=== PATIENT | male | born 1965 | race African-American/Black ===

== ENCOUNTER 2020-08-06 12:58 | Outpatient (CLI) | payer OTHER ==
--- NOTE | 2020-08-06 13:10 | RAD ---
XR Chest Pa Lat STANDARD HISTORY: Encounter for disability determination COMPARISON: None FINDINGS: The heart size is normal. The lungs are well expanded without focal areas of consolidation, pneumothorax or pleural effusions. There are degenerative changes in the spine. IMPRESSION: No radiographic evidence of acute cardiopulmonary process.
== END 2020-08-06 12:59 | disposition home or self-care (01) ==
LOC: BICRAD 12:58
PROVIDERS: ATTEND Internal Medicine
DX: Z02.71 Encounter for disability determination (principal)
CPT/HCPCS: 71046

== ENCOUNTER 2021-03-09 06:44 | Emergency (ER) | payer OTHER ==
[2021-03-09] MEDS ORDERED: Fluorescein Opthalmic Strip ONE (07:01)
[2021-03-09] MEDS ORDERED: Boostrix 0.5 ML (Tdap) VIAL ONE (08:08)
== END 2021-03-09 08:22 | disposition home or self-care (01) ==
LOC: ERS 06:44
DX: S05.01XA Injury of conjunctiva and corneal abrasion without foreign body, right eye, initial encounter (principal); I10 Essential (primary) hypertension; E78.5 Hyperlipidemia, unspecified; E11.40 Type 2 diabetes mellitus with diabetic neuropathy, unspecified; W22.8XXA Striking against or struck by other objects, initial encounter
CPT/HCPCS: 70480; 90471; 90715

== ENCOUNTER 2021-05-06 10:26 | Outpatient (CLI) | payer OTHER | END 2021-05-06 10:27 | disposition home or self-care (01) | LOC: CT 10:26 | PROVIDERS: ATTEND Surgery | DX: R10.9 Unspecified abdominal pain (principal); R19.8 Other specified symptoms and signs involving the digestive system and abdomen; K42.9 Umbilical hernia without obstruction or gangrene | CPT/HCPCS: 74176 ==

== ENCOUNTER 2021-05-23 14:36 | Emergency (ER) | payer OTHER ==
[2021-05-23] MEDS ORDERED: Proparacaine 0.5% Opth 15 ML BOT ONE (16:19)
[2021-05-23] MEDS ORDERED: Fluorescein Opthalmic Strip ONE (16:19)
== END 2021-05-23 17:05 | disposition home or self-care (01) ==
LOC: ERS 14:36
DX: S05.01XA Injury of conjunctiva and corneal abrasion without foreign body, right eye, initial encounter (principal); R60.0 Localized edema
CPT/HCPCS: 99283

== ENCOUNTER 2021-06-09 14:42 | Emergency (ER) | payer OTHER ==
[~2021-06-09 14:42] MED LIST: Iopamidol-370 76% 500 ML 1 ML ONE
[2021-06-09 15:35] LABS: #Lymphocytes 1.5 thou/uL (1.20-3.40); #Monocytes 0.8 thou/uL (0.11-0.59); #Neutrophils 5.1 thou/uL (1.40-6.50); %Basophils 0.3 % (0.0-1.0); %Eosinophils 0.1 % (0.0-10.0); %Monocytes 10.2 % (0.0-10.0); %Neutrophils 69.5 % (42.0-75.0); Hemoglobin 13.8 g/dL (14.0-18.0); Mean Corpuscular HGB CONC 33.2 g/dL (32.0-36.0); Mean Corpuscular Hemoglobin 28.3 pg (27.0-31.0); Mean Corpuscular Volume 85.2 fL (78.0-98.0); Mean Platelet Volume 8.4 fL (7.4-10.4); Platelet Count 225 thou/uL (130-400); RBC Distribution Width 11.2 % (11.5-14.5); White Blood Cell (WBC) Count 7.4 thou/uL (4.8-10.8)
[2021-06-09 15:55] LABS: ALT (SGPT) 33 U/L (8-55); AST (SGOT) 22 U/L (5-34); Albumin 3.5 g/dL (3.5-5.0); Alkaline Phosphatase 135 U/L (40-110); Anion Gap 12 mmol/L (10-20); BUN (Urea Nitrogen) 15 mg/dL (8.4-25.7); Bilirubin, Total 0.5 mg/dL (0.2-1.2); Calc. Creatinine Clearance 0 mL/min (70-130); Carbon Dioxide 22 mmol/L (22-29); Chloride 108 mmol/L (98-107); Globulin 3.5 g/dL (2.4-3.5); Glucose 205 mg/dL (70-105); Lipase 162 U/L (8-78); Potassium 3.9 mmol/L (3.5-5.1); Sodium 138 mmol/L (136-145)
[2021-06-09 16:36] LABS: Bilirubin Negative (Negative); Blood, Urine Negative (Negative); Clarity Clear (Clear); Glucose, Urine (Dipstick) Greater than 1000 mg/dL (Negative); Ketone, Urine Negative (Negative); Leukocyte Negative Leu/uL (Negative); Nitrite Negative (Negative); Protein, Urine (Dipstick) 20 mg/dL (Neg-Trace); Specific Gravity, Urine 1.028 (1.002-1.036); Urobilinogen 3 mg/dL (Less than 2); pH, Urine 5.5 (5.0-9.0)
[2021-06-09] MEDS ORDERED: Mag-Al 1200 mg/1200 mg/30 ML UDCUP ONE (17:21)
[2021-06-09] MEDS ORDERED: Lidocaine Viscous Sol 2% 15 ml UD Cup ONE (17:21)
== END 2021-06-09 18:32 | disposition home or self-care (01) ==
LOC: ERS 14:42
DX: R10.11 Right upper quadrant pain (principal); R11.0 Nausea; I10 Essential (primary) hypertension; E11.40 Type 2 diabetes mellitus with diabetic neuropathy, unspecified; E78.5 Hyperlipidemia, unspecified; G47.30 Sleep apnea, unspecified; J45.909 Unspecified asthma, uncomplicated; M19.90 Unspecified osteoarthritis, unspecified site; F17.200 Nicotine dependence, unspecified, uncomplicated
CPT/HCPCS: 36415; 74177; 80053; 81003; 83690; 85025; Q9967

== ENCOUNTER 2021-07-04 13:13 | Emergency (ER) | payer OTHER ==
[2021-07-04 13:41] LABS: Bilirubin Negative (Negative); Blood, Urine Negative (Negative); Clarity Clear (Clear); Glucose, Urine (Dipstick) Greater than 1000 mg/dL (Negative); Ketone, Urine Negative (Negative); Leukocyte Negative Leu/uL (Negative); Nitrite Negative (Negative); Protein, Urine (Dipstick) Negative (Neg-Trace); Urobilinogen Normal mg/dL (Less than 2); pH, Urine 5.5 (5.0-9.0)
[2021-07-04 14:20] LABS: #Lymphocytes 1.4 thou/uL (1.20-3.40); #Monocytes 0.9 thou/uL (0.11-0.59); #Neutrophils 3.7 thou/uL (1.40-6.50); %Basophils 0.7 % (0.0-1.0); %Lymphocytes 23.3 % (21.0-51.0); %Monocytes 14.6 % (0.0-10.0); %Neutrophils 61.4 % (42.0-75.0); Mean Corpuscular HGB CONC 33.4 g/dL (32.0-36.0); Mean Corpuscular Hemoglobin 28.3 pg (27.0-31.0); Mean Corpuscular Volume 84.9 fL (78.0-98.0); Mean Platelet Volume 9.7 fL (7.4-10.4); Platelet Count 173 thou/uL (130-400); RBC Distribution Width 12.3 % (11.5-14.5); Red Blood Cell (RBC) Count 4.94 mill/uL (4.70-6.10)
[2021-07-04 14:56] LABS: ALT (SGPT) 30 U/L (8-55); AST (SGOT) 23 U/L (5-34); Albumin 3.9 g/dL (3.5-5.0); Alkaline Phosphatase 161 U/L (40-110); Anion Gap 17 mmol/L (10-20); BUN (Urea Nitrogen) 18 mg/dL (8.4-25.7); Bilirubin, Total 0.5 mg/dL (0.2-1.2); Calc. Creatinine Clearance 0 mL/min (70-130); Calcium 9.6 mg/dL (7.8-10.44); Carbon Dioxide 21 mmol/L (22-29); Chloride 103 mmol/L (98-107); Globulin 3.8 g/dL (2.4-3.5); Glucose 347 mg/dL (70-105); Lipase 91 U/L (8-78); Potassium 4.2 mmol/L (3.5-5.1); Protein, Total 7.7 g/dL (6.0-8.3); Sodium 137 mmol/L (136-145)
== END 2021-07-04 19:18 | disposition home or self-care (01) ==
LOC: ERS 13:13
DX: R10.11 Right upper quadrant pain (principal); I10 Essential (primary) hypertension; E78.5 Hyperlipidemia, unspecified; E11.40 Type 2 diabetes mellitus with diabetic neuropathy, unspecified; G47.30 Sleep apnea, unspecified; M19.90 Unspecified osteoarthritis, unspecified site; J45.909 Unspecified asthma, uncomplicated; F17.220 Nicotine dependence, chewing tobacco, uncomplicated; E66.01 Morbid (severe) obesity due to excess calories
CPT/HCPCS: 36415; 80053; 81003; 83690; 85025; 96372; 99284; J0500

== ENCOUNTER 2022-01-16 16:05 | Emergency (ER) | payer OTHER ==
[2022-01-16 16:42] LABS: #Lymphocytes 1.7 thou/uL (1.20-3.40); #Monocytes 0.9 thou/uL (0.11-0.59); #Neutrophils 4.9 thou/uL (1.40-6.50); %Basophils 0.3 % (0.0-1.0); %Eosinophils 0.1 % (0.0-10.0); %Lymphocytes 22.6 % (21.0-51.0); %Monocytes 12.2 % (0.0-10.0); %Neutrophils 64.9 % (42.0-75.0); Hemoglobin 13.4 g/dL (14.0-18.0); Mean Corpuscular HGB CONC 32.5 g/dL (32.0-36.0); Mean Corpuscular Hemoglobin 28.5 pg (27.0-31.0); Mean Corpuscular Volume 87.7 fL (78.0-98.0); Mean Platelet Volume 9.3 fL (7.4-10.4); Platelet Count 184 thou/uL (130-400); RBC Distribution Width 12.6 % (11.5-14.5); Red Blood Cell (RBC) Count 4.72 mill/uL (4.70-6.10); White Blood Cell (WBC) Count 7.6 thou/uL (4.8-10.8)
[2022-01-16 17:18] LABS: Amphetamine Not Detected (NotDetected); Barbiturates Screen Not Detected (NotDetected); Benzodiazepine Screen Not Detected (NotDetected); Cocaine Metabolite Screen Not Detected (NotDetected); Methadone Not Detected (NotDetected); Methamphetamine Not Detected (NotDetected); Opiate Screen Not Detected (NotDetected); Oxycodone Screen Not Detected (NotDetected); Phencyclidine (PCP) Not Detected (NotDetected); THC/Cannabinoid Screen Not Detected (NotDetected); Tricyclic Screen Not Detected (NotDetected)
[2022-01-16 17:25] LABS: ALT (SGPT) 29 U/L (8-55); AST (SGOT) 25 U/L (5-34); Acetaminophen Less than 10.0 mcg/mL (10.0-30.0); Albumin 4.1 g/dL (3.5-5.0); Alcohol Less than 10 mg/dL (Less than 10); Alkaline Phosphatase 125 U/L (40-110); Anion Gap 15 mmol/L (10-20); BUN (Urea Nitrogen) 28 mg/dL (8.4-25.7); Bilirubin, Total 1.3 mg/dL (0.2-1.2); Calc. Creatinine Clearance 0 mL/min (70-130); Calcium 9.4 mg/dL (7.8-10.44); Carbon Dioxide 23 mmol/L (22-29); Chloride 104 mmol/L (98-107); Globulin 3.1 g/dL (2.4-3.5); Glucose 135 mg/dL (70-105); Lipase 52 U/L (8-78); Potassium 3.9 mmol/L (3.5-5.1); Protein, Total 7.2 g/dL (6.0-8.3); Salicylate Less than 8.0 mg/dL (15.0-30.0); Sodium 138 mmol/L (136-145)
== END 2022-01-16 19:22 | disposition home or self-care (01) ==
LOC: ERS 16:05
DX: R10.12 Left upper quadrant pain (principal); I10 Essential (primary) hypertension; E78.5 Hyperlipidemia, unspecified; E11.40 Type 2 diabetes mellitus with diabetic neuropathy, unspecified; G47.30 Sleep apnea, unspecified; M19.90 Unspecified osteoarthritis, unspecified site; F17.220 Nicotine dependence, chewing tobacco, uncomplicated
CPT/HCPCS: 36415; 71045; 74177; 80053; 80306; 80307; 83690; 84443; 84484; 85025; 93005; 94760

== ENCOUNTER 2022-02-27 15:31 | Emergency (ER) | payer OTHER ==
[2022-02-27 17:12] LABS: #Lymphocytes 1.7 thou/uL (1.20-3.40); #Monocytes 0.8 thou/uL (0.11-0.59); #Neutrophils 3.3 thou/uL (1.40-6.50); %Basophils 0.7 % (0.0-1.0); %Lymphocytes 28.6 % (21.0-51.0); %Monocytes 13.5 % (0.0-10.0); %Neutrophils 57.2 % (42.0-75.0); Hemoglobin 13.3 g/dL (14.0-18.0); Mean Corpuscular HGB CONC 32.8 g/dL (32.0-36.0); Mean Corpuscular Hemoglobin 28.9 pg (27.0-31.0); Mean Corpuscular Volume 88.1 fL (78.0-98.0); Mean Platelet Volume 9.1 fL (7.4-10.4); Platelet Count 176 thou/uL (130-400); RBC Distribution Width 12.6 % (11.5-14.5); White Blood Cell (WBC) Count 5.8 thou/uL (4.8-10.8)
[2022-02-27 17:33] LABS: Anion Gap 14 mmol/L (10-20); BUN (Urea Nitrogen) 11 mg/dL (8.4-25.7); Calc. Creatinine Clearance 0 mL/min (70-130); Carbon Dioxide 21 mmol/L (22-29); Chloride 105 mmol/L (98-107); Potassium 3.9 mmol/L (3.5-5.1); Sodium 136 mmol/L (136-145)
[2022-02-27 17:34] LABS: ALT (SGPT) 22 U/L (8-55); AST (SGOT) 19 U/L (5-34); Albumin 3.6 g/dL (3.5-5.0); Alkaline Phosphatase 159 U/L (40-110); Bilirubin, Total 0.6 mg/dL (0.2-1.2); Calcium 8.9 mg/dL (7.8-10.44); Globulin 3.3 g/dL (2.4-3.5); Glucose 242 mg/dL (70-105); Protein, Total 6.9 g/dL (6.0-8.3)
== END 2022-02-27 18:45 | disposition home or self-care (01) ==
LOC: ERS 15:31
DX: E11.65 Type 2 diabetes mellitus with hyperglycemia (principal); E11.40 Type 2 diabetes mellitus with diabetic neuropathy, unspecified; E78.5 Hyperlipidemia, unspecified; G47.30 Sleep apnea, unspecified; M19.90 Unspecified osteoarthritis, unspecified site; J45.909 Unspecified asthma, uncomplicated
CPT/HCPCS: 36416; 80053; 85025; 96360

== ENCOUNTER 2022-11-14 07:41 | Inpatient (IN) | payer BC, OTHER ==
[2022-11-14 08:12] LABS: #Lymphocytes 1.3 thou/uL (1.20-3.40); #Monocytes 0.8 thou/uL (0.11-0.59); #Neutrophils 5.8 thou/uL (1.40-6.50); %Basophils 0.2 % (0.0-1.0); %Eosinophils 0.5 % (0.0-10.0); %Lymphocytes 16.3 % (21.0-51.0); %Monocytes 10.1 % (0.0-10.0); Hemoglobin 14.4 g/dL (14.0-18.0); Mean Corpuscular HGB CONC 32.5 g/dL (32.0-36.0); Mean Corpuscular Hemoglobin 27.8 pg (27.0-31.0); Mean Corpuscular Volume 85.6 fl (78.0-98.0); Mean Platelet Volume 10.2 fL (7.4-10.4); Platelet Count 146 10x3/uL (130-400); RBC Distribution Width 12.5 % (11.5-14.5); Red Blood Cell (RBC) Count 5.18 mill/uL (4.70-6.10)
[2022-11-14 08:30] LABS: Prothrombin Time 13.6 sec (12.0-14.7)
[2022-11-14 08:33] LABS: ALT (SGPT) 35 U/L (8-55); AST (SGOT) 26 U/L (5-34); Albumin 4.1 g/dL (3.5-5.0); Alkaline Phosphatase 253 U/L (40-110); Anion Gap 15 mmol/L (10-20); BUN (Urea Nitrogen) 21 mg/dL (8.4-25.7); Bilirubin, Total 0.6 mg/dL (0.2-1.2); Calc. Creatinine Clearance 0 mL/min (70-130); Calcium 9.7 mg/dL (7.8-10.44); Carbon Dioxide 24 mmol/L (22-29); Chloride 101 mmol/L (98-107); Estimated GFR 50; Potassium 4.5 mmol/L (3.5-5.1); Protein, Total 8.1 g/dL (6.0-8.3); Sodium 135 mmol/L (136-145)
[2022-11-14 08:46] LABS: Glucose 405 mg/dL (70-105)
[2022-11-14] MEDS ORDERED: Aspirin Chewable 81 MG TAB ONE (08:47)
[2022-11-14] MEDS ORDERED: hydrALAZINE 20 MG/ML VIAL ONE (08:47)
[2022-11-14] MEDS ORDERED: Insulin Regular 300 UNITS/3 ML VIAL ONE (08:47)
[2022-11-14 09:08] LABS: Bilirubin Negative (Negative); Blood, Urine Negative (Negative); Clarity Clear (Clear); Glucose, Urine (Dipstick) Greater than 1000 mg/dL (Negative); Ketone, Urine Negative (Negative); Leukocyte Negative Leu/uL (Negative); Nitrite Negative (Negative); Protein, Urine (Dipstick) Negative (Neg-Trace); Specific Gravity, Urine 1.024 (1.002-1.036); Urobilinogen Normal mg/dL (Less than 2); pH, Urine 6.5 (5.0-9.0)
[2022-11-14] MEDS ORDERED: Acetaminophen 325 MG TAB PO PRN (09:32)
[2022-11-14] MEDS ORDERED: Ondansetron PF 4 MG/2 ML Vial IVP PRN (09:32)
[2022-11-14] MEDS ORDERED: HYDROcodone/Acetaminophen 5/325 mg Tablet PO PRN (09:32)
[2022-11-14] MEDS ORDERED: Dextrose 5% in Water 1,000 ML IV PRN (09:53)
[2022-11-14] MEDS ORDERED: Dextrose 50% Abboject 50 ML SYRINGE SLOW IVP PRN (09:53)
[2022-11-14] MEDS ORDERED: Insulin Glargine 30 UNITS/0.3 ML VIAL SC SCH (10:00)
[2022-11-14 10:29] LABS: Hemoglobin A1c 9.3 % (4.0-6.0)
[2022-11-14 13:58] LABS: Glucose 227 mg/dL (70-105)
[2022-11-14] MEDS ORDERED: Iopamidol-370 76% 500 ML 1 ML ONE (14:16)
[2022-11-14] MEDS ORDERED: hydrALAZINE 20 MG/ML VIAL SLOW IVP PRN (17:48)
[2022-11-14] MEDS: HumaLOG 300 UNITS/3 ML VIAL SC PRN ×2 (18:10→20:34)
[2022-11-14] MEDS ORDERED: HumaLOG 300 UNITS/3 ML VIAL ONE (18:11)
[2022-11-14 19:02] VITALS: BMI 34.8
[2022-11-14] MEDS: Atorvastatin Calcium 40 MG TAB PO SCH (20:29)
[2022-11-14] MEDS: Famotidine/PF 20 mg/2ml Vial SLOW IVP SCH (20:29)
[2022-11-14 22:34] LABS: Glucose 193 mg/dL (70-105)
[2022-11-15] MEDS: HumaLOG 300 UNITS/3 ML VIAL SC PRN ×3 (05:39→18:28)
[2022-11-15 05:40] LABS: #Lymphocytes 1.3 thou/uL (1.20-3.40); #Monocytes 0.8 thou/uL (0.11-0.59); #Neutrophils 5.9 thou/uL (1.40-6.50); %Basophils 0.1 % (0.0-1.0); %Eosinophils 0.1 % (0.0-10.0); %Lymphocytes 16.6 % (21.0-51.0); %Monocytes 9.9 % (0.0-10.0); %Neutrophils 73.3 % (42.0-75.0); Hemoglobin 14.7 g/dL (14.0-18.0); Mean Corpuscular HGB CONC 33.3 g/dL (32.0-36.0); Mean Corpuscular Hemoglobin 28.7 pg (27.0-31.0); Mean Corpuscular Volume 86.2 fl (78.0-98.0); Mean Platelet Volume 9.9 fL (7.4-10.4); Platelet Count 146 10x3/uL (130-400); RBC Distribution Width 12.6 % (11.5-14.5); Red Blood Cell (RBC) Count 5.13 mill/uL (4.70-6.10)
[2022-11-15 06:00] LABS: Anion Gap 14 mmol/L (10-20); BUN (Urea Nitrogen) 22 mg/dL (8.4-25.7); Calc. Creatinine Clearance 90 mL/min (70-130); Calcium 9.4 mg/dL (7.8-10.44); Carbon Dioxide 21 mmol/L (22-29); Cardiac Risk 2.8 (Less than 4.5); Chloride 103 mmol/L (98-107); Cholesterol 129 mg/dl (< 200 Desired); Estimated GFR 61; Glucose 247 mg/dL (70-105); HDL Cholesterol 46 mg/dL (>60 Neg Risk); LDL Cholesterol, Calculated 66 mg/dL; Potassium 4.5 mmol/L (3.5-5.1); Sodium 133 mmol/L (136-145); Triglycerides 85 mg/dL (Less than 150)
[2022-11-15] MEDS: Famotidine/PF 20 mg/2ml Vial SLOW IVP SCH (08:26)
[2022-11-15] MEDS: Aspirin 81 mg Enteric Coated Tablet PO SCH (08:26)
[2022-11-15] MEDS: Insulin Glargine 30 UNITS/0.3 ML VIAL SC SCH (08:27)
[2022-11-15] MEDS ORDERED: Insulin Glargine 30 UNITS/0.3 ML VIAL SC SCH (21:00)
[2022-11-15] MEDS: Bupropion 100 MG SR TAB PO SCH (22:06)
[2022-11-15] MEDS: Atorvastatin Calcium 40 MG TAB PO SCH (22:06)
[2022-11-15] MEDS: Gabapentin 300 MG CAP PO SCH (22:06)
[2022-11-15] MEDS: Lithium Carbonate 150 MG CAP PO SCH (22:08)
[2022-11-15] MEDS: Metoprolol Tartrate 25 MG TAB PO SCH (22:08)
[2022-11-16 05:34] LABS: Anion Gap 13 mmol/L (10-20); BUN (Urea Nitrogen) 23 mg/dL (8.4-25.7); Calc. Creatinine Clearance 81 mL/min (70-130); Calcium 9.2 mg/dL (7.8-10.44); Carbon Dioxide 21 mmol/L (22-29); Chloride 104 mmol/L (98-107); Estimated GFR 54; Glucose 225 mg/dL (70-105); Sodium 134 mmol/L (136-145)
[2022-11-16] MEDS: HumaLOG 300 UNITS/3 ML VIAL SC PRN (06:10)
[2022-11-16] MEDS: Gabapentin 300 MG CAP PO SCH ×3 (09:36→21:49)
[2022-11-16] MEDS: Bupropion 100 MG SR TAB PO SCH ×2 (09:36→21:50)
[2022-11-16] MEDS: Metoprolol Tartrate 25 MG TAB PO SCH ×2 (09:39→21:51)
[2022-11-16] MEDS: Aspirin 81 mg Enteric Coated Tablet PO SCH (09:39)
[2022-11-16] MEDS: Lithium Carbonate 150 MG CAP PO SCH ×2 (09:40→21:51)
[2022-11-16] MEDS: Insulin Glargine 30 UNITS/0.3 ML VIAL SC SCH (09:41)
[2022-11-16] MEDS ORDERED: Insulin Glargine 30 UNITS/0.3 ML VIAL SC SCH (21:00)
[2022-11-16] MEDS: Atorvastatin Calcium 40 MG TAB PO SCH (21:50)
[2022-11-17] MEDS: HumaLOG 300 UNITS/3 ML VIAL SC PRN ×2 (00:20→06:54)
[2022-11-17 06:20] LABS: Anion Gap 13 mmol/L (10-20); BUN (Urea Nitrogen) 25 mg/dL (8.4-25.7); Calc. Creatinine Clearance 80 mL/min (70-130); Calcium 9.3 mg/dL (7.8-10.44); Carbon Dioxide 22 mmol/L (22-29); Chloride 105 mmol/L (98-107); Estimated GFR 53; Glucose 183 mg/dL (70-105); Potassium 4.3 mmol/L (3.5-5.1); Sodium 136 mmol/L (136-145)
[2022-11-17 06:30] LABS: Lymphocytes 19 % (21-51); MDiff Complete? YES; Mean Corpuscular HGB CONC 32.8 g/dL (32.0-36.0); Mean Corpuscular Hemoglobin 28.3 pg (27.0-31.0); Mean Corpuscular Volume 86.5 fl (78.0-98.0); Monocytes 5 % (0-10); Neutrophil 73 % (42-75); Platelet Count 134 10x3/uL (130-400); Platelet Morphology Comment Appears Adequate; RBC Distribution Width 12.7 % (11.5-14.5); RBC Morphology Normal; Reactive Lymphocytes 3 % (0-10); Red Blood Cell (RBC) Count 4.92 mill/uL (4.70-6.10); White Blood Cell (WBC) Count 7.2 10x3/uL (4.8-10.8)
[2022-11-17] MEDS ORDERED: FLU VACC QS2022-23(6MOS UP)/PF 60 MCG/0.5 ML SYRINGE IM ONE (09:00)
[2022-11-17] MEDS: Aspirin 81 mg Enteric Coated Tablet PO SCH (09:52)
[2022-11-17] MEDS: Bupropion 100 MG SR TAB PO SCH (09:53)
[2022-11-17] MEDS: Gabapentin 300 MG CAP PO SCH ×2 (09:54→15:43)
[2022-11-17] MEDS: Insulin Glargine 30 UNITS/0.3 ML VIAL SC SCH (09:55)
[2022-11-17] MEDS: Lithium Carbonate 150 MG CAP PO SCH (09:56)
[2022-11-17] MEDS: Metoprolol Tartrate 25 MG TAB PO SCH (09:57)
[2022-11-17 16:04] VITALS: BP 151/80; TEMP 97.5
[2022-11-17] MEDS ORDERED: Amlodipine 5 MG TAB PO SCH (18:00)
== END 2022-11-17 17:11 | disposition home or self-care (01) | DRG 65 ==
LOC: ERS 07:41 → ERHOLD 09:18 → NEURO 18:43
PROVIDERS: ADMIT Internal Medicine; ATTEND Internal Medicine
DX: I63.9 Cerebral infarction, unspecified (principal); G81.94 Hemiplegia, unspecified affecting left nondominant side; I16.1 Hypertensive emergency; R29.703 NIHSS score 3; Z20.822 Contact with and (suspected) exposure to COVID-19; E11.65 Type 2 diabetes mellitus with hyperglycemia; F17.290 Nicotine dependence, other tobacco product, uncomplicated; R20.0 Anesthesia of skin; R47.81 Slurred speech; N18.30 Chronic kidney disease, stage 3 unspecified; E11.22 Type 2 diabetes mellitus with diabetic chronic kidney disease; I12.9 Hypertensive chronic kidney disease with stage 1 through stage 4 chronic kidney disease, or unspecified chronic kidney disease; M25.552 Pain in left hip; M54.9 Dorsalgia, unspecified; Z90.49 Acquired absence of other specified parts of digestive tract; Z28.21 Immunization not carried out because of patient refusal; Z82.49 Family history of ischemic heart disease and other diseases of the circulatory system; Z83.3 Family history of diabetes mellitus; Z91.14 Patient's other noncompliance with medication regimen; Z79.899 Other long term (current) drug therapy; Z79.1 Long term (current) use of non-steroidal anti-inflammatories (NSAID)
CPT/HCPCS: 36415; 36416; 70450; 70496; 70498; 70551; 71045; 72131; 80048; 80053; 80061; 81003; 83036; 84484; 85025; 85610; 85730; 93005; 93306; 94760; 96361; 96374; 96375; J0360; J1650; J1815; Q9967; S0028; U0003; U0005

== ENCOUNTER 2022-12-22 23:51 | Emergency (ER) | payer BC, OTHER ==
[2022-12-23] MEDS ORDERED: Aspirin Chewable 81 MG TAB ONE (01:05)
== END 2022-12-23 01:51 | disposition home or self-care (01) ==
LOC: ERS 23:51
DX: R20.2 Paresthesia of skin (principal); E11.65 Type 2 diabetes mellitus with hyperglycemia; I10 Essential (primary) hypertension; E78.5 Hyperlipidemia, unspecified; E11.40 Type 2 diabetes mellitus with diabetic neuropathy, unspecified; F17.220 Nicotine dependence, chewing tobacco, uncomplicated; Z79.4 Long term (current) use of insulin
CPT/HCPCS: 36416; 93005

== ENCOUNTER 2022-12-28 21:31 | Emergency (ER) | payer OTHER ==
[2022-12-28 22:50] LABS: #Lymphocytes 1.9 thou/uL (1.20-3.40); #Monocytes 0.7 thou/uL (0.11-0.59); #Neutrophils 4.2 thou/uL (1.40-6.50); %Basophils 0.5 % (0.0-1.0); %Eosinophils 0.1 % (0.0-10.0); %Lymphocytes 27.5 % (21.0-51.0); %Monocytes 10.2 % (0.0-10.0); %Neutrophils 61.7 % (42.0-75.0); Hemoglobin 12.8 g/dL (14.0-18.0); Mean Corpuscular HGB CONC 32.7 g/dL (32.0-36.0); Mean Corpuscular Hemoglobin 28.4 pg (27.0-31.0); Mean Corpuscular Volume 86.8 fl (78.0-98.0); Mean Platelet Volume 9.1 fL (7.4-10.4); Platelet Count 165 10x3/uL (130-400); RBC Distribution Width 12.6 % (11.5-14.5); Red Blood Cell (RBC) Count 4.49 mill/uL (4.70-6.10); White Blood Cell (WBC) Count 6.8 10x3/uL (4.8-10.8)
[2022-12-28] MEDS ORDERED: traZODone HCl 50 MG TAB ONE (22:51)
[2022-12-28] MEDS ORDERED: Nicotine 14 MG PATCH ONE (22:51)
[2022-12-28] MEDS ORDERED: hydrOXYzine Pamoate 25 mg Capsule ONE (22:52)
[2022-12-28] MEDS ORDERED: Ibuprofen 200 MG TAB ONE (22:53)
[2022-12-28 22:55] LABS: Bilirubin Negative (Negative); Blood, Urine Negative (Negative); Clarity Clear (Clear); Glucose, Urine (Dipstick) 500 mg/dL (Negative); Ketone, Urine Negative (Negative); Leukocyte Negative Leu/uL (Negative); Nitrite Negative (Negative); Protein, Urine (Dipstick) Negative (Neg-Trace); Specific Gravity, Urine 1.003 (1.002-1.036); Urobilinogen Normal mg/dL (Less than 2)
[2022-12-28 23:04] LABS: Amphetamine Not Detected (NotDetected); Barbiturates Screen Not Detected (NotDetected); Benzodiazepine Screen Not Detected (NotDetected); Cocaine Metabolite Screen Not Detected (NotDetected); Methadone Not Detected (NotDetected); Methamphetamine Not Detected (NotDetected); Opiate Screen Not Detected (NotDetected); Oxycodone Screen Not Detected (NotDetected); Phencyclidine (PCP) Not Detected (NotDetected); THC/Cannabinoid Screen Not Detected (NotDetected); Tricyclic Screen Not Detected (NotDetected)
[2022-12-28 23:11] LABS: Acetaminophen Less than 10.0 mcg/mL (10.0-30.0); Alcohol 138 mg/dL (Less than 10); Salicylate Less than 8.0 mg/dL (15.0-30.0)
[2022-12-28 23:13] LABS: ALT (SGPT) 26 U/L (8-55); AST (SGOT) 24 U/L (5-34); Albumin 3.7 g/dL (3.5-5.0); Alkaline Phosphatase 150 U/L (40-110); Anion Gap 14 mmol/L (10-20); BUN (Urea Nitrogen) 21 mg/dL (8.4-25.7); Bilirubin, Total 0.4 mg/dL (0.2-1.2); Calc. Creatinine Clearance 0 mL/min (70-130); Calcium 9.2 mg/dL (7.8-10.44); Carbon Dioxide 21 mmol/L (22-29); Chloride 109 mmol/L (98-107); Estimated GFR 52; Globulin 3.6 g/dL (2.4-3.5); Glucose 214 mg/dL (70-105); Potassium 3.5 mmol/L (3.5-5.1); Protein, Total 7.3 g/dL (6.0-8.3); Sodium 140 mmol/L (136-145)
[2022-12-28] MEDS ORDERED: Ziprasidone 20 MG VIAL ONE (23:34)
[2022-12-28] MEDS ORDERED: Sterile Water 10 ML ONE (23:35)
== END 2022-12-29 13:16 | disposition home or self-care (01) ==
LOC: ERS 21:31
DX: F10.129 Alcohol abuse with intoxication, unspecified (principal); I10 Essential (primary) hypertension; E11.40 Type 2 diabetes mellitus with diabetic neuropathy, unspecified; E78.5 Hyperlipidemia, unspecified; F17.220 Nicotine dependence, chewing tobacco, uncomplicated; Y90.6 Blood alcohol level of 120-199 mg/100 ml
CPT/HCPCS: 36415; 70450; 72125; 80053; 80306; 80307; 81003; 84443; 85025; 93005; 96372; J3486; Q0177

== ENCOUNTER 2024-06-27 14:04 | Inpatient (IN) | payer OTHER ==
[2024-06-27] MEDS ORDERED: Heparin 25,000 units/D5W 500 ML ONE (14:23)
[2024-06-27] MEDS ORDERED: Heparin 10,000 UNITS/ 10 ML VIAL ONE (14:26)
[2024-06-27] MEDS ORDERED: Heparin 25,000 UNITS/D5W 500 ml bag ONE (14:26)
[2024-06-27 14:38] LABS: #Basophils 0.03 10x3/uL (0.0-0.2); #Eosinophils Less than 0.03 10x3/uL (0.0-0.7); %Basophils 0.5 % (0.0-1.0); %Lymphocytes 16.3 % (21.0-51.0); %Monocytes 13.2 % (0.0-10.0); %Neutrophils 69.8 % (42.0-75.0); Hematocrit 40.4 % (42.0-52.0); Hemoglobin 13.3 g/dL (14.0-18.0); Mean Corpuscular HGB CONC 32.9 g/dL (32.0-36.0); Mean Corpuscular Hemoglobin 27.7 pg (27.0-31.0); Mean Platelet Volume 11.2 fL (7.4-10.4); Platelet Count 186 10x3/uL (130-400); RBC Distribution Width 13.2 % (11.5-14.5); Red Blood Cell (RBC) Count 4.81 mill/uL (4.70-6.10)
[2024-06-27] MEDS ORDERED: Dextrose 50% Abboject 50 ML SYRINGE SLOW IVP PRN (14:48)
[2024-06-27] MEDS ORDERED: Dextrose 5% in Water 1,000 ML IV PRN (14:48)
[2024-06-27] MEDS ORDERED: Insulin Lispro 100 UNIT/ML 10 ML VIAL SC PRN ×2 (14:48)
[2024-06-27] MEDS ORDERED: Glucagon 1 MG/ML KIT IM PRN (14:48)
[2024-06-27 14:55] LABS: INR-International Normal Ratio 1.1; PTT 26.6 sec (22.9-36.1); Troponin I 0.229 ng/mL (< 0.028)
[2024-06-27] MEDS ORDERED: Heparin 25,000 units/D5W 500 ML IVPB SCH (15:00)
[2024-06-27] MEDS ORDERED: Morphine 2 MG/ML VIAL SLOW IVP PRN (15:00)
[2024-06-27] MEDS ORDERED: Ondansetron ODT 4 MG TAB PO PRN (15:29)
[2024-06-27] MEDS ORDERED: Calcium Carbonate 500 MG ChewTAB PO PRN (15:29)
[2024-06-27] MEDS ORDERED: Acetaminophen 325 MG TAB PO PRN (15:29)
[2024-06-27] MEDS ORDERED: Senokot S 8.6-50 MG TAB PO PRN (15:29)
[2024-06-27] MEDS ORDERED: Ondansetron PF 4 MG/2 ML Vial IVP PRN (15:29)
[2024-06-27 15:42] LABS: Hemoglobin 12.9 g/dL (14.0-18.0); Platelet Count 191 10x3/uL (130-400)
[2024-06-27 15:55] LABS: ALT (SGPT) 22 U/L (8-55); AST (SGOT) 23 U/L (5-34); Albumin 3.3 g/dL (3.4-4.8); Alkaline Phosphatase 93 U/L (40-110); Anion Gap 12 mmol/L (10-20); BUN (Urea Nitrogen) 25 mg/dL (8.4-25.7); Bilirubin, Total 0.8 mg/dL (0.2-1.2); Calc. Creatinine Clearance 0 mL/min (70-130); Calcium 8.9 mg/dL (7.8-10.44); Carbon Dioxide 24 mmol/L (23-31); Chloride 107 mmol/L (98-107); Estimated GFR 39; Globulin 3.3 g/dL (2.4-3.5); Glucose 152 mg/dL (80-115); Lipase 40 U/L (8-78); Potassium 3.8 mmol/L (3.5-5.1); Protein, Total 6.6 g/dL (5.8-8.1); Sodium 139 mmol/L (136-145)
[2024-06-27] MEDS ORDERED: Gabapentin 100 MG CAP ONE (16:09)
[2024-06-27] MEDS ORDERED: Carvedilol 6.25 MG TAB ONE (16:09)
[2024-06-27] MEDS: Gabapentin 100 MG CAP PO SCH (16:22)
[2024-06-27] MEDS: Carvedilol 6.25 MG TAB PO SCH (16:23)
[2024-06-27 17:27] LABS: Troponin I 0.456 ng/mL (< 0.028)
[2024-06-27] MEDS: Sodium Chloride 0.9% 1,000 ML IV SCH (18:14)
[2024-06-27 18:17] VITALS: BMI 38.2
[2024-06-27] MEDS: Atorvastatin Calcium 40 MG TAB PO SCH (20:55)
[2024-06-27] MEDS: Heparin 10,000 UNITS/ 10 ML VIAL SLOW IVP SCH (20:57)
[2024-06-27] MEDS ORDERED: Lithium Carbonate 150 MG CAP PO SCH (21:00)
[2024-06-27] MEDS: Insulin Glargine 30 UNITS/0.3 ML VIAL SC SCH (22:30)
[2024-06-28 04:36] LABS: #Basophils 0.03 10x3/uL (0.0-0.2); #Eosinophils Less than 0.03 10x3/uL (0.0-0.7); %Basophils 0.5 % (0.0-1.0); %Lymphocytes 28.5 % (21.0-51.0); %Monocytes 15.9 % (0.0-10.0); %Neutrophils 54.8 % (42.0-75.0); Hematocrit 37.5 % (42.0-52.0); Hemoglobin 12.3 g/dL (14.0-18.0); Mean Corpuscular HGB CONC 32.8 g/dL (32.0-36.0); Mean Corpuscular Hemoglobin 27.8 pg (27.0-31.0); Mean Corpuscular Volume 84.8 fL (78.0-98.0); Mean Platelet Volume 11.4 fL (7.4-10.4); Platelet Count 173 10x3/uL (130-400); RBC Distribution Width 13.1 % (11.5-14.5); Red Blood Cell (RBC) Count 4.42 mill/uL (4.70-6.10)
[2024-06-28 05:06] LABS: Hemoglobin A1c 9.7 % (4.0-6.0)
[2024-06-28 05:10] LABS: ALT (SGPT) 19 U/L (8-55); AST (SGOT) 19 U/L (5-34); Albumin 2.9 g/dL (3.4-4.8); Alkaline Phosphatase 109 U/L (40-110); Anion Gap 10 mmol/L (10-20); BUN (Urea Nitrogen) 21 mg/dL (8.4-25.7); Bilirubin, Total 0.6 mg/dL (0.2-1.2); Calc. Creatinine Clearance 90 mL/min (70-130); Calcium 8.7 mg/dL (7.8-10.44); Carbon Dioxide 23 mmol/L (23-31); Cardiac Risk 2.6 (Less than 4.5); Chloride 109 mmol/L (98-107); Cholesterol 84 mg/dl (< 200 Desired); Estimated GFR 58; Glucose 239 mg/dL (80-115); HDL Cholesterol 32 mg/dL (>60 Neg Risk); LDL Cholesterol, Calculated 32 mg/dL; Potassium 3.8 mmol/L (3.5-5.1); Protein, Total 5.9 g/dL (5.8-8.1); Sodium 138 mmol/L (136-145); Triglycerides 100 mg/dL (Less than 150)
[2024-06-28] MEDS: Lisinopril 5 MG TAB PO SCH (09:30)
[2024-06-28] MEDS: Amlodipine 5 MG TAB PO SCH (09:30)
[2024-06-28] MEDS: Clopidogrel Bisulfate 75 MG TAB PO SCH (09:31)
[2024-06-28] MEDS: Ezetimibe 10 MG TAB PO SCH (09:31)
[2024-06-28] MEDS: Aspirin 81 mg Enteric Coated Tablet PO SCH (09:31)
[2024-06-28] MEDS: Insulin Glargine 30 UNITS/0.3 ML VIAL SC SCH (09:31)
[2024-06-28 09:43] LABS: Troponin I 0.797 ng/mL (< 0.028)
[2024-06-28] MEDS ORDERED: Communication Order-Pharmacy FS SCH (10:00)
[2024-06-28] MEDS: Enoxaparin 120 MG/0.8 ML SYRINGE SC SCH (12:09)
[2024-06-28 13:29] LABS: Critical Call Chem Troponin I RESULT DECREASING; Troponin I 0.775 ng/mL (< 0.028)
[2024-06-29 04:43] LABS: #Basophils 0.03 10x3/uL (0.0-0.2); #Eosinophils Less than 0.03 10x3/uL (0.0-0.7); %Basophils 0.6 % (0.0-1.0); %Monocytes 14.3 % (0.0-10.0); %Neutrophils 63.9 % (42.0-75.0); Hematocrit 39.4 % (42.0-52.0); Hemoglobin 12.7 g/dL (14.0-18.0); Mean Corpuscular HGB CONC 32.2 g/dL (32.0-36.0); Mean Corpuscular Hemoglobin 27.4 pg (27.0-31.0); Mean Corpuscular Volume 84.9 fL (78.0-98.0); Mean Platelet Volume 11.3 fL (7.4-10.4); Platelet Count 171 10x3/uL (130-400); RBC Distribution Width 13.1 % (11.5-14.5); Red Blood Cell (RBC) Count 4.64 mill/uL (4.70-6.10)
[2024-06-29 05:01] LABS: Anion Gap 11 mmol/L (10-20); BUN (Urea Nitrogen) 15 mg/dL (8.4-25.7); Calc. Creatinine Clearance 88 mL/min (70-130); Calcium 8.3 mg/dL (7.8-10.44); Carbon Dioxide 22 mmol/L (23-31); Chloride 109 mmol/L (98-107); Estimated GFR 56; Glucose 193 mg/dL (80-115); Magnesium 1.8 mg/dL (1.6-2.6); Potassium 3.6 mmol/L (3.5-5.1); Sodium 138 mmol/L (136-145)
[2024-06-29] MEDS ORDERED: Heparin 10,000 UNITS/ 10 ML VIAL ONE (07:31)
[2024-06-29] MEDS ORDERED: Nitroglycerin 50 MG/250 ML BOT 0 ML ONE (07:31)
[2024-06-29] MEDS ORDERED: fentaNYL 50 mcg/mL 1 mL Vial ONE ×2 (08:05→08:54)
[2024-06-29] MEDS ORDERED: Midazolam HCl 2 mg/2 ml Vial ONE (08:05)
[2024-06-29] MEDS ORDERED: Metoprolol Tartrate 5 MG (5 mL) VIAL ONE (08:58)
[2024-06-29] MEDS ORDERED: Sodium Chloride 0.9% 200 ML IV PRN (09:24)
[2024-06-29] MEDS ORDERED: Nitroglycerin 0.4 MG TAB (25 Tab Bottle) SL PRN (09:24)
[2024-06-29] MEDS: Lactated Ringer's 1,000 ML IV SCH (10:12)
[2024-06-29] MEDS ORDERED: Iopamidol 370 76% 100 ML VIAL ONE (11:26)
[2024-06-29 14:51] LABS: Hematocrit 45.8 % (42.0-52.0); Hemoglobin 14.7 g/dL (14.0-18.0); Platelet Count 170 10x3/uL (130-400)
[2024-06-29 15:57] VITALS: TEMP 98.1
[2024-06-29] MEDS: Carvedilol 6.25 MG TAB PO SCH (16:00)
[2024-06-29] MEDS: Potassium Chloride 20 MEQ TAB PO SCH (16:35)
[2024-06-29] MEDS: Furosemide 20 MG (2 mL) VIAL SLOW IVP SCH (16:35)
[2024-06-29 17:13] VITALS: BP 136/79
[2024-06-30] MEDS ORDERED: Insulin Glargine 30 UNITS/0.3 ML VIAL SC SCH (09:00)
== END 2024-06-29 17:52 | disposition home or self-care (01) | DRG 282 ==
LOC: SUATTDRO 14:04 → ERS 14:04 → ERHOLD 16:00 → 2NO 18:03
PROVIDERS: ADMIT Internal Medicine; ATTEND Internal Medicine
PROC: 4A023N7 Measurement of Cardiac Sampling and Pressure, Left Heart, Percutaneous Approach (ICD-10-PCS; principal; 2024-06-29)
PROC: B2151ZZ Fluoroscopy of Left Heart using Low Osmolar Contrast (ICD-10-PCS; 2024-06-29)
PROC: B2111ZZ Fluoroscopy of Multiple Coronary Arteries using Low Osmolar Contrast (ICD-10-PCS; 2024-06-29)
DX: I21.4 Non-ST elevation (NSTEMI) myocardial infarction (principal); N18.9 Chronic kidney disease, unspecified; I12.9 Hypertensive chronic kidney disease with stage 1 through stage 4 chronic kidney disease, or unspecified chronic kidney disease; E11.22 Type 2 diabetes mellitus with diabetic chronic kidney disease; E78.5 Hyperlipidemia, unspecified; I25.10 Atherosclerotic heart disease of native coronary artery without angina pectoris; E78.00 Pure hypercholesterolemia, unspecified; M19.90 Unspecified osteoarthritis, unspecified site; I25.2 Old myocardial infarction; F32.A Depression, unspecified; F17.220 Nicotine dependence, chewing tobacco, uncomplicated; Z79.01 Long term (current) use of anticoagulants; Z91.148 Patient's other noncompliance with medication regimen for other reason; Z79.4 Long term (current) use of insulin; Z79.899 Other long term (current) drug therapy; Z79.82 Long term (current) use of aspirin; Z90.49 Acquired absence of other specified parts of digestive tract
CPT/HCPCS: 36415; 36416; 71045; 80048; 80053; 80061; 83036; 83690; 83735; 83880; 84484; 85014; 85018; 85025; 85049; 85610; 85730; 93005; 93306; 93458; 94760; 96374; 99152; 99153; C1769; C1887; C1894; J1644; J1650; J1815; J1940; J2250; J3010; J7030; J7120